=== PATIENT | female | born 2000 | race Caucasian/White ===

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

== ENCOUNTER 2019-01-21 22:39 | Emergency (ER) | payer BC | END 2019-01-22 00:32 | disposition home or self-care (01) | LOC: FTE 01-22 00:32 | DX: M79.604 Pain in right leg (principal); K59.00 Constipation, unspecified | CPT/HCPCS: 99283; Z7502 ==